=== PATIENT | female | born 1930 | race Caucasian/White ===

== ENCOUNTER → 2016-07-01 | Outpatient (CLI) | payer MEDICARE, OTHER ==
[~2016-07-01] MED LIST: ACIPHEX20 MG PO; ASA CHILDREN'S81 MG PO; ASA325 MG PO; ATORVASTATIN CA40 MG PO; BRILINTA90 MG PO; COZAAR DPS25 MG PO; FISH OIL 1,0001 EACH PO; GLUCOPHAGE-DPS500 MG PO; KLOR-CON M2020 ME1 PO; LASIX DPS80 MG PO; LIPITOR DPS40 MG PO; LOPRESSOR DPS50 MG PO; METOPROLOL TART25 MG PO; MIRALAX PACKET17 GM PO; NEURONTIN DPS100 MG PO; OCEAN NASAL MIS45 ML NS; OMEGA-3 DPS1000 MG PO; SENOKOT-S TABL1 EACH PO; TYLENOL DPS325 MG PO; VITAMIN D31000 UNIT PO; VITAMIN D400 UNIT PO; XARELTO10 MG PO; ZYLOPRIM-DPS300 MG PO
== END | disposition home or self-care (01) ==
LOC: RAD.S 09:47
DX: R13.10 Dysphagia, unspecified (principal); K21.9 Gastro-esophageal reflux disease without esophagitis; K44.9 Diaphragmatic hernia without obstruction or gangrene